=== PATIENT | male | born 1950 | race Hispanic/Latino ===

== ENCOUNTER 2017-06-24 10:56 | Outpatient (RCR) | payer MEDICARE | END 2017-07-13 | LOC: PT 10:56 | PROVIDERS: ATTEND Specialist | DX: M17.0 Bilateral primary osteoarthritis of knee (principal); M25.562 Pain in left knee; M25.561 Pain in right knee; M25.662 Stiffness of left knee, not elsewhere classified; M25.661 Stiffness of right knee, not elsewhere classified; M62.81 Muscle weakness (generalized); R26.2 Difficulty in walking, not elsewhere classified | CPT/HCPCS: 97110; 97162; G8978; G8979 ==

== ENCOUNTER 2018-03-10 16:17 | Emergency (ER) | payer MEDICARE ==
[~2018-03-10] VITALS: Ht 172.7 cm; Wt 81.6 kg
[2018-03-10] MEDS ORDERED: DEXAMETHASONE SOD PHOS 10 MG/1 ML VIAL INJ ONE (17:50)
[2018-03-10] MEDS ORDERED: KETOROLAC TROMETHAMINE 60 MG/2 ML VIAL IM ONE (17:55)
== END 2018-03-10 19:35 | disposition home or self-care (01) ==
LOC: ER 16:17
DX: M25.511 Pain in right shoulder (principal)
CPT/HCPCS: 29240; 99283; J1100; J1885

== ENCOUNTER 2018-03-14 10:32 | Emergency (ER) | payer MEDICARE ==
[~2018-03-14] VITALS: Ht 172.7 cm; Wt 81.6 kg
[2018-03-14 12:15] LABS: BILIRUBIN,URINE NEGATIVE (NEGATIVE); CLARITY,URINE CLEAR (CLEAR); COLOR,URINE YELLOW (YELLOW); KETONES,URINE NEGATIVE (NEGATIVE); LEUKOCYTE ESTERASE ,URINE NEGATIVE (NEGATIVE); NITRITE,URINE NEGATIVE (NEGATIVE); PROTEIN,URINE DIPSTICK NEGATIVE (NEGATIVE); URINE UROBILINOGEN 0.2 mg/dL (0.2 - 1)
[2018-03-14 12:16] LABS: EPITHELIAL CELLS,URINE RARE /LPF
[2018-03-14 12:51] LABS: BASOPHILS % 0.5 % (0.0-1.0); EOSINOPHILS # (AUTO) 0.1 (0.0-0.4); EOSINOPHILS % 0.9 % (0.0-6.0); HEMATOCRIT 41.9 % (38.2-49.6); HEMOGLOBIN 14.1 g/dL (14.0-18.0); LYMPHOCYTES # (AUTO) 1.4 (1.0-3.2); LYMPHOCYTES % 17.7 % (18.0-39.1); MEAN CORPUSCULAR HEMOGLOBIN 31.3 pg (28-32); MEAN CORPUSCULAR HGB CONC 33.7 g/dL (31-35); MEAN CORPUSCULAR VOLUME 93.1 fL (81-99); MONOCYTES # (AUTO) 0.7 (0.2-0.8); MONOCYTES % 8.8 % (4.4-11.3); NEUTROPHILS # (AUTO) 5.6 (2.1-6.9); NEUTROPHILS % 71.7 % (38.7-80.0); PLATELET COUNT 348 x10e3/uL (140-360); RED CELL DISTRIBUTION WIDTH 13.3 % (11.7-14.4)
[2018-03-14 13:29] LABS: ALANINE AMINOTRANSFERASE 17 IU/L (0-55); ALBUMIN 3.9 g/dL (3.5-5.0); ALBUMIN/GLOBULIN RATIO 1.1 (0.8-2.0); ALKALINE PHOSPHATASE 95 IU/L (40-150); ANION GAP 13.5 mmol/L (8-16); BLOOD UREA NITROGEN 15 mg/dL (7-26); BUN/CREATININE RATIO 19 (6-25); CALCIUM 9.8 mg/dL (8.4-10.2); CARBON DIOXIDE 27 mmol/L (22-29); CHLORIDE 100 mmol/L (98-107); EST GLOMERULAR FILTRATION RATE > 60 ML/MIN (60-); GLUCOSE 98 mg/dL (74-118); MAGNESIUM 2.1 MG/DL (1.3-2.1); POTASSIUM 3.5 mmol/L (3.5-5.1); SODIUM 137 mmol/L (136-145)
[2018-03-14] MEDS ORDERED: FLOMAX0.4 MG PO (14:12)
[2018-03-14 14:31] LABS: EOSINOPHILS % (MANUAL) 2 % (0-7); LYMPHOCYTES % (MANUAL) 19 % (19-48); MONOCYTES % (MANUAL) 9 % (3.4-9.0); NEUTROPHILS % (MANUAL) 70 % (40-74); PLATELET ESTIMATE ADEQUATE; PLATELET MORPHOLOGY COMMENT NORMAL; RBC MORPHOLOGY COMMENT NORMAL
== END 2018-03-14 15:00 | disposition home or self-care (01) ==
LOC: ER 10:32
DX: R30.0 Dysuria (principal); N40.0 Benign prostatic hyperplasia without lower urinary tract symptoms
CPT/HCPCS: 36415; 80053; 81001; 83735; 85025; 99284

== ENCOUNTER → 2021-04-08 | Outpatient (CLI) | payer OTHER ==
[~2021-04-08] MED LIST: FLOMAX0.4 MG PO
== END ==
LOC: RAD 13:15
PROVIDERS: ATTEND Internal Medicine
DX: M19.011 Primary osteoarthritis, right shoulder (principal)

== ENCOUNTER → 2021-04-15 | Outpatient (CLI) | payer OTHER | LOC: DX 08:59 | PROVIDERS: ATTEND Internal Medicine | DX: M85.88 Other specified disorders of bone density and structure, other site (principal) | CPT/HCPCS: 77080 ==

== ENCOUNTER 2021-08-12 12:41 | Emergency (ER) | payer MEDICARE, OTHER ==
[~2021-08-12] VITALS: Ht 172.7 cm; Wt 81.6 kg
[2021-08-12] MEDS ORDERED: IBUPROFEN 400 MG TAB PO ONE (13:00)
[2021-08-12] MEDS ORDERED: METHYLPREDNISOLONE SOD SUCC 125 MG/2ML VIAL IV ONE (13:15)
[2021-08-12 13:25] LABS: BASOPHILS % 0.2 % (0.0-1.0); EOSINOPHILS % 0.2 % (0.0-6.0); HEMATOCRIT 39.5 % (38.2-49.6); HEMOGLOBIN 13.5 g/dL (14.0-18.0); LYMPHOCYTES # (AUTO) 1.2 (1.0-3.2); LYMPHOCYTES % 13.6 % (18.0-39.1); MEAN CORPUSCULAR HEMOGLOBIN 33.3 pg (28-32); MEAN CORPUSCULAR HGB CONC 34.2 g/dL (31-35); MEAN CORPUSCULAR VOLUME 97.5 fL (81-99); MONOCYTES # (AUTO) 0.6 (0.2-0.8); MONOCYTES % 6.5 % (4.4-11.3); NEUTROPHILS # (AUTO) 6.7 (2.1-6.9); NEUTROPHILS % 78.8 % (38.7-80.0); PLATELET COUNT 297 x10e3/uL (140-360); RED BLOOD COUNT 4.05 x10e6/uL (4.3-5.7); RED CELL DISTRIBUTION WIDTH 13.5 % (11.7-14.4)
[2021-08-12 13:46] LABS: INR 0.82; PROTHROMBIN TIME 12.1 seconds (11.9-14.5)
[2021-08-12 13:47] LABS: PARTIAL THROMBOPLASTIN TIME 25.2 seconds (23.8-35.5)
[2021-08-12 13:48] LABS: ALBUMIN 3.9 g/dL (3.5-5.0); ALBUMIN/GLOBULIN RATIO 1.2 (0.8-2.0); ANION GAP 12.4 mmol/L (8-16); CALCIUM 9.4 mg/dL (8.4-10.2); CREATININE, SERUM 0.83 mg/dL (0.72-1.25); POTASSIUM 3.4 mmol/L (3.5-5.1)
[2021-08-12 14:31] LABS: CREATINE KINASE MB 6.2 ng/mL (0-5.0)
== END 2021-08-12 15:53 | disposition home or self-care (01) ==
LOC: ER 12:49
DX: J30.2 Other seasonal allergic rhinitis (principal); R06.02 Shortness of breath; I10 Essential (primary) hypertension; N40.0 Benign prostatic hyperplasia without lower urinary tract symptoms; Z20.822 Contact with and (suspected) exposure to COVID-19; Z79.899 Other long term (current) drug therapy
CPT/HCPCS: 36415; 70360; 71046; 80053; 82550; 82553; 83880; 84484; 85025; 85610; 85730; 93005; 99284; J2930; U0002

== ENCOUNTER → 2021-12-29 | Day surgery (SDC) | payer MEDICARE, OTHER ==
[2021-12-25 13:48] LABS: BASOPHILS % 0.4 % (0.0-1.0); EOSINOPHILS % 0.3 % (0.0-6.0); HEMATOCRIT 39.3 % (38.2-49.6); LYMPHOCYTES % 10.1 % (18.0-39.1); MEAN CORPUSCULAR HEMOGLOBIN 33.2 pg (28-32); MEAN CORPUSCULAR HGB CONC 33.1 g/dL (31-35); MEAN CORPUSCULAR VOLUME 100.5 fL (81-99); MONOCYTES # (AUTO) 0.5 (0.2-0.8); MONOCYTES % 5.2 % (4.4-11.3); NEUTROPHILS # (AUTO) 8.2 (2.1-6.9); NEUTROPHILS % 83.2 % (38.7-80.0); PLATELET COUNT 301 x10e3/uL (140-360); RED BLOOD COUNT 3.91 x10e6/uL (4.3-5.7); RED CELL DISTRIBUTION WIDTH 13.3 % (11.7-14.4)
[~2021-12-29] MED LIST changes: +BALANCED SALT SOLN (OPTH) 15 ML BTL IO ONE; +FENTANYL CITRATE/PF 100MCG/2 ML INJ ONE; +LIDOCAINE 2% /EPINEPHRINE 20 ML SDV INJ ONE; +LIDOCAINE HCL 2% LOCAL INJ 5 ML SDV VIAL INJ ONE; +LIPITOR10 MG PO; +LOSARTAN POTAS100 MG PO; +MELATONIN3 MG PO; +METOPROLOL SUCC25 MG PO; +MIDAZOLAM HCL 2 MG/2 ML VIAL ONE; +MULTI-VITAMIN1 EACH PO; +NEOMYCIN/POLYMYXIN/DEX (OPTH) 3.5 GM TUBE ONE; +OMEGA 3 PO; +POVIDONE IODINE 0.05% 0.05 % ML PO ONE; +PROPOFOL IV EMULSION 10 MG/ML 20 ML VIAL ONE; +TRIAMTERENE-HC1 EAC1 PO; +VIT B12 PO; +VIT D PO
[2021-12-29 17:16] VITALS: BP 170/98
[2021-12-29] MEDS: HYDRALAZINE HCL 20 MG/ML VIAL ONE ×2 (17:20→17:36)
== END | disposition home or self-care (01) ==
LOC: OR 11:00
PROVIDERS: ATTEND Ophthalmology
DX: H02.834 Dermatochalasis of left upper eyelid (principal); H02.831 Dermatochalasis of right upper eyelid; K21.9 Gastro-esophageal reflux disease without esophagitis; M19.90 Unspecified osteoarthritis, unspecified site; I10 Essential (primary) hypertension; G47.33 Obstructive sleep apnea (adult) (pediatric); M54.9 Dorsalgia, unspecified; M54.2 Cervicalgia; N40.0 Benign prostatic hyperplasia without lower urinary tract symptoms; E78.5 Hyperlipidemia, unspecified; Z01.812 Encounter for preprocedural laboratory examination; Z20.822 Contact with and (suspected) exposure to COVID-19; Z79.899 Other long term (current) drug therapy
CPT/HCPCS: 0223U; 36415; 82948; 85025; J0360; J2001; J2250; J3010

== ENCOUNTER → 2023-09-28 | Outpatient (REF) | payer MEDICARE ==
[~2023-09-28] MED LIST changes: -BALANCED SALT SOLN (OPTH) 15 ML BTL IO ONE; +CEPHALEXIN500 MG PO; -FENTANYL CITRATE/PF 100MCG/2 ML INJ ONE; -LIDOCAINE 2% /EPINEPHRINE 20 ML SDV INJ ONE; -LIDOCAINE HCL 2% LOCAL INJ 5 ML SDV VIAL INJ ONE; -MIDAZOLAM HCL 2 MG/2 ML VIAL ONE; -NEOMYCIN/POLYMYXIN/DEX (OPTH) 3.5 GM TUBE ONE; -POVIDONE IODINE 0.05% 0.05 % ML PO ONE; -PROPOFOL IV EMULSION 10 MG/ML 20 ML VIAL ONE
== END ==
LOC: RAD 13:54
PROVIDERS: ATTEND Physician Assistant Medical
DX: M79.642 Pain in left hand (principal)

== ENCOUNTER 2025-01-17 19:49 | Inpatient (IN) | payer MEDICARE ==
[~2025-01-17] VITALS: Ht 162.6 cm; Wt 88.5 kg
[~2025-01-17 19:49] MED LIST changes: +ASPIRIN81 MG PO; +ATORVASTATIN CA40 MG PO; +BUMETANIDE1 MG PO; +CIPRO500 MG PO; +CYCLOBENZAPRIN7.5 MG PO; +DOXYCYCLINE HY100 MG PO; +ENTRESTO 49 MG1 EACH PO; +FINASTERIDE5 MG PO; +HYDROCODON-ACE1 EAC9 PO; +IBUPROFEN600 MG PO; +JARDIANCE10 MG PO; +MELOXICAM7.5 MG PO; +METOPROLOL SUCC50 MG PO; +PERCOCET 5-3251 EACH PO; +SENNA S TABLET1 EACH PO; +TAMSULOSIN PO; +TRIAMTERENE-HCTZ1 EA PO; +TYLENOL325 MG PO; +ULTRAM 50MG50 MG PO; +prednisolone OS; +tylenol #3 PO
[2025-01-17 19:57] VITALS: TEMP 97.5
[2025-01-17 20:21] LABS: BASOPHILS % 0.2 % (0.0-1.0); EOSINOPHILS % 2.2 % (0.0-6.0); LYMPHOCYTES % 12.9 % (18.0-39.1); MONOCYTES % 11.4 % (4.4-11.3); NEUTROPHILS % 71.5 % (38.7-80.0); RED CELL DISTRIBUTION WIDTH 13.9 % (11.7-14.4)
[2025-01-17] MEDS ORDERED: SODIUM CHLORIDE 0.9% 1000ML 1,000 ML ONE (20:23)
[2025-01-17 20:41] LABS: EST GLOMERULAR FILTRATION RATE 76.0 ML/MIN (>=60)
[2025-01-17 20:43] LABS: CORONAVIRUS COVID-19 AG NEGATIVE (NEGATIVE)
[2025-01-17 22:57] VITALS: PULSE 71; RESP 18
[2025-01-17] MEDS: SODIUM CHLORIDE 0.9% 1000ML 1,000 ML IV STA (23:28)
[2025-01-17 23:43] VITALS: BP 104/64; PULSE 73; RESP 16; TEMP 97.5; O2SAT 100
[2025-01-18] VITALS (8 sets, daily range): BP systolic 104–131; BP diastolic 56–73; PULSE 65–83; RESP 16–20; TEMP 97.5–207.5; O2SAT 95–100
[2025-01-18] MEDS ORDERED: ENTRESTO 24 MG1 EACH PO (00:34)
[2025-01-18] MEDS ORDERED: TORSEMIDE20 MG PO (00:37)
[2025-01-18] MEDS ORDERED: METOLAZONE5 MG PO (00:39)
[2025-01-18] MEDS ORDERED: METOLAZONE2.5 MG PO (00:41)
[2025-01-18] MEDS: SODIUM CHLORIDE 0.9% 1000ML 1,000 ML IV SCH (00:52)
[2025-01-18 07:14] LABS: EST GLOMERULAR FILTRATION RATE 97.0 ML/MIN (>=60)
[2025-01-18 07:19] LABS: OSMOLALITY,SERUM 251 mOsm/kg (278-305)
[2025-01-18 07:25] LABS: BASOPHILS % 0.4 % (0.0-1.0); EOSINOPHILS % 2.9 % (0.0-6.0); LYMPHOCYTES % 15.9 % (18.0-39.1); MONOCYTES % 13.0 % (4.4-11.3); NEUTROPHILS % 65.5 % (38.7-80.0); RED CELL DISTRIBUTION WIDTH 14.1 % (11.7-14.4)
[2025-01-18] MEDS: POTASSIUM CHLORIDE 20 MEQ TAB CR PO ONE (08:46)
[2025-01-18] MEDS ORDERED: KCL 40MEQ/0.9% SOD CHL 1,000 ML IV SCH (12:00)
[2025-01-18 16:51] LABS: EST GLOMERULAR FILTRATION RATE 95.0 ML/MIN (>=60)
[2025-01-18] MEDS: POTASSIUM CHLORIDE 10MEQ EA PO ONE ×2 (17:59→18:01)
[2025-01-18] MEDS: KCL 40MEQ/0.9% SOD CHL 1,000 ML IV SCH (18:02)
[2025-01-18] MEDS: ATORVASTATIN 40 MG TAB PO SCH (21:11)
[2025-01-18] MEDS: MELATONIN 3 MG TAB PO SCH (21:11)
[2025-01-18] MEDS: SODIUM CHLORIDE 1 GM TAB PO SCH (21:11)
[2025-01-19] VITALS (8 sets, daily range): BP systolic 77–148; BP diastolic 43–93; PULSE 70–86; RESP 18–19; TEMP 97.4–98.5; O2SAT 94–100
[2025-01-19 05:45] LABS: BASOPHILS % 0.3 % (0.0-1.0); EOSINOPHILS % 2.7 % (0.0-6.0); LYMPHOCYTES % 17.8 % (18.0-39.1); MONOCYTES % 12.7 % (4.4-11.3); NEUTROPHILS % 64.6 % (38.7-80.0); RED CELL DISTRIBUTION WIDTH 14.0 % (11.7-14.4)
[2025-01-19 06:05] LABS: EST GLOMERULAR FILTRATION RATE 101.0 ML/MIN (>=60)
[2025-01-19] MEDS: METOPROLOL SUCCINATE 25 MG TAB XL PO SCH (09:00)
[2025-01-19] MEDS: LOSARTAN POTASSIUM 100 MG TAB PO SCH (09:00)
[2025-01-19] MEDS: TAMSULOSIN HCL 0.4 MG CAP PO SCH (09:08)
[2025-01-19] MEDS: EMPAGLIFLOZIN 10 MG TABLET PO SCH (09:08)
[2025-01-19] MEDS: FINASTERIDE 5 MG TAB PO SCH (09:09)
[2025-01-19] MEDS: POTASSIUM CHLORIDE 10MEQ EA PO ONE ×2 (12:53→14:52)
[2025-01-19] MEDS: FUROSEMIDE INJ 10 MG/ML 4 ML VIAL IV ONE (14:51)
[2025-01-19] MEDS: ENOXAPARIN SOD INJ 40 MG/0.4 ML SYR SC SCH (16:36)
[2025-01-20] VITALS (8 sets, daily range): BP systolic 97–115; BP diastolic 58–69; PULSE 75–87; RESP 18–20; TEMP 97.5–99.2; O2SAT 95–100
[2025-01-20 08:21] LABS: BASOPHILS % 0.2 % (0.0-1.0); EOSINOPHILS % 2.1 % (0.0-6.0); LYMPHOCYTES % 13.1 % (18.0-39.1); MONOCYTES % 11.2 % (4.4-11.3); NEUTROPHILS % 71.9 % (38.7-80.0); RED CELL DISTRIBUTION WIDTH 14.3 % (11.7-14.4)
[2025-01-20] MEDS: HYDROCODONE/APAP 10MG-325MG TAB PO PRN (08:44)
[2025-01-20 08:46] LABS: EST GLOMERULAR FILTRATION RATE 100.0 ML/MIN (>=60)
[2025-01-20 08:47] LABS: PHOSPHORUS 3.0 MG/DL (2.3-4.7)
[2025-01-20] MEDS: FUROSEMIDE INJ 10 MG/ML 4 ML VIAL IV SCH (22:30)
[2025-01-21 06:07] LABS: BASOPHILS % 0.1 % (0.0-1.0); EOSINOPHILS % 3.1 % (0.0-6.0); LYMPHOCYTES % 11.8 % (18.0-39.1); MONOCYTES % 13.0 % (4.4-11.3); NEUTROPHILS % 71.0 % (38.7-80.0); RED CELL DISTRIBUTION WIDTH 14.3 % (11.7-14.4)
[2025-01-21 06:33] LABS: EST GLOMERULAR FILTRATION RATE 99.0 ML/MIN (>=60)
[2025-01-21 08:00] VITALS: BP 113/61; PULSE 73; RESP 19; TEMP 98.7; O2SAT 96
[2025-01-21] MEDS: POTASSIUM CHLORIDE 20 MEQ TAB CR PO ONE (09:22)
[2025-01-21 12:00] VITALS: BP 103/58; PULSE 97; RESP 21; TEMP 99.2; O2SAT 99
[2025-01-21 16:00] VITALS: BP 110/59; PULSE 89; RESP 18; TEMP 99; O2SAT 98
[2025-01-21] MEDS: FUROSEMIDE 40 MG TAB PO SCH (16:40)
[2025-01-21 20:00] VITALS: BP 90/59; PULSE 89; RESP 18; TEMP 98.5; O2SAT 98
[2025-01-22 06:34] LABS: EST GLOMERULAR FILTRATION RATE 100.0 ML/MIN (>=60)
[2025-01-22 07:52] VITALS: BP 108/64; PULSE 70; RESP 17; TEMP 97.9; O2SAT 93
[2025-01-22] MEDS: POTASSIUM CHLORIDE 20 MEQ TAB CR PO SCH (09:42)
[2025-01-22] MEDS ORDERED: GADOBENATE DIMEGLUMINE 1 ML IV ONE (10:51)
[2025-01-22 11:44] VITALS: BP 108/60; PULSE 80; RESP 19; TEMP 97.8; O2SAT 95
[2025-01-22 16:00] VITALS: BP 92/49; PULSE 79; RESP 17; TEMP 98.9; O2SAT 98
[2025-01-22 20:00] VITALS: BP 124/78; PULSE 85; RESP 18; TEMP 98.1; O2SAT 97
[2025-01-22 23:53] VITALS: BP 101/61; PULSE 82; RESP 17; TEMP 98.2; O2SAT 94
[2025-01-23 04:00] VITALS: BP 112/64; PULSE 82; RESP 18; TEMP 98.4; O2SAT 97
[2025-01-23 05:57] LABS: BASOPHILS % 0.4 % (0.0-1.0); EOSINOPHILS % 4.6 % (0.0-6.0); LYMPHOCYTES % 11.6 % (18.0-39.1); MONOCYTES % 9.9 % (4.4-11.3); NEUTROPHILS % 72.8 % (38.7-80.0); RED CELL DISTRIBUTION WIDTH 14.3 % (11.7-14.4)
[2025-01-23 06:38] LABS: EST GLOMERULAR FILTRATION RATE 103.0 ML/MIN (>=60)
[2025-01-23 07:02] LABS: PHOSPHORUS 3.6 MG/DL (2.3-4.7)
[2025-01-23] MEDS ORDERED: MAGNESIUM SULFATE 2GM/50ML IV ONE (08:00)
[2025-01-23 09:22] VITALS: BP 166/96; PULSE 75; RESP 17; TEMP 98; O2SAT 98
[2025-01-23] MEDS: MAGNESIUM OXIDE 400 MG TAB PO SCH (10:13)
[2025-01-23] MEDS: MAGNESIUM SULFATE 2GM/50ML 50 ML IV ONE (10:14)
[2025-01-23] MEDS: SODIUM CHLORIDE 0.9% 250ML 250 ML ONE (10:15)
[2025-01-23 10:33] VITALS: BP 166/96; PULSE 75; RESP 17; TEMP 98; O2SAT 98
[2025-01-23] MEDS ORDERED: DOCUSATE SODIUM 100 MG CAP PO PRN (17:45)
[2025-01-23 18:04] VITALS: BP 162/92; PULSE 107; RESP 18; TEMP 98.6; O2SAT 100
[2025-01-23 19:53] VITALS: BP 129/76; PULSE 92; RESP 18; TEMP 100.5; O2SAT 97
[2025-01-23 21:00] VITALS: BP 129/76; PULSE 92; RESP 18; TEMP 100.5; O2SAT 97
[2025-01-24] VITALS (8 sets, daily range): BP systolic 100–128; BP diastolic 58–70; PULSE 78–90; RESP 17–20; TEMP 98.2–99.9; O2SAT 97–99
[2025-01-24 10:59] LABS: EST GLOMERULAR FILTRATION RATE 96.0 ML/MIN (>=60)
[2025-01-24] MEDS ORDERED: HYDRALAZINE HCL 20 MG/ML VIAL IV PRN (19:30)
[2025-01-24] MEDS ORDERED: HYDROCODONE/APAP 10MG-325MG TAB PO PRN (19:30)
[2025-01-24] MEDS ORDERED: MAGNESIUM HYDROXIDE 30 ML UDC PO PRN (19:30)
[2025-01-24] MEDS ORDERED: ACETAMINOPHEN 325 MG TAB PO PRN (19:30)
[2025-01-24] MEDS ORDERED: ONDANSETRON HCL INJ 2MG/ML 2ML 2 MG/ML VIAL IV PRN (19:30)
[2025-01-25] VITALS (7 sets, daily range): BP systolic 101–117; BP diastolic 56–77; PULSE 78–92; RESP 18–20; TEMP 98.1–100.7; O2SAT 96–98
[2025-01-25 06:27] LABS: BASOPHILS % 0.3 % (0.0-1.0); EOSINOPHILS % 7.4 % (0.0-6.0); LYMPHOCYTES % 15.1 % (18.0-39.1); MONOCYTES % 14.6 % (4.4-11.3); NEUTROPHILS % 59.9 % (38.7-80.0); RED CELL DISTRIBUTION WIDTH 14.3 % (11.7-14.4)
[2025-01-25 06:45] LABS: EST GLOMERULAR FILTRATION RATE 97.0 ML/MIN (>=60); PHOSPHORUS 3.8 MG/DL (2.3-4.7)
[2025-01-25] MEDS: SENNA-S TABLET PO SCH (09:31)
[2025-01-25] MEDS: ENOXAPARIN SOD INJ 40 MG/0.4 ML SYR SC SCH (16:31)
[2025-01-25] MEDS: POTASSIUM CHLORIDE 20 MEQ TAB CR PO ONE (17:51)
[2025-01-26] VITALS: BP 120/68; PULSE 86; RESP 20; TEMP 100.1; O2SAT 97
[2025-01-26 04:00] VITALS: BP 109/64; PULSE 79; RESP 18; TEMP 98; O2SAT 95
[2025-01-26 07:06] LABS: EST GLOMERULAR FILTRATION RATE 100.0 ML/MIN (>=60)
[2025-01-26 09:00] VITALS: BP 109/64; PULSE 79; RESP 18; TEMP 98; O2SAT 95
[2025-01-26 09:12] VITALS: BP 122/64; PULSE 77; RESP 20; TEMP 98.7; O2SAT 96
[2025-01-26 12:05] VITALS: BP 114/79; PULSE 82; RESP 20; TEMP 98.9; O2SAT 95
[2025-01-26 16:38] VITALS: BP 142/66; PULSE 84; RESP 18; TEMP 98.9; O2SAT 96
== END 2025-01-26 18:22 | DRG 643 ==
LOC: ER 19:57 → MERGE 21:28 → ERHOLD 21:28 → MED/SURG3 23:32
PROVIDERS: ADMIT Internal Medicine; ATTEND Internal Medicine
DX: E22.2 Syndrome of inappropriate secretion of antidiuretic hormone (principal); G93.41 Metabolic encephalopathy; I50.33 Acute on chronic diastolic (congestive) heart failure; L03.116 Cellulitis of left lower limb; L03.115 Cellulitis of right lower limb; I11.0 Hypertensive heart disease with heart failure; M46.46 Discitis, unspecified, lumbar region; R62.7 Adult failure to thrive; E87.6 Hypokalemia; E83.42 Hypomagnesemia; E87.8 Other disorders of electrolyte and fluid balance, not elsewhere classified; R29.810 Facial weakness; R53.1 Weakness; I89.0 Lymphedema, not elsewhere classified; R25.1 Tremor, unspecified; E11.9 Type 2 diabetes mellitus without complications; Z79.84 Long term (current) use of oral hypoglycemic drugs; Z79.4 Long term (current) use of insulin; E78.5 Hyperlipidemia, unspecified; R26.9 Unspecified abnormalities of gait and mobility; I45.10 Unspecified right bundle-branch block; R53.81 Other malaise; T50.2X5A Adverse effect of carbonic-anhydrase inhibitors, benzothiadiazides and other diuretics, initial encounter; Y92.230 Patient room in hospital as the place of occurrence of the external cause; E88.2 Lipomatosis, not elsewhere classified; M48.08 Spinal stenosis, sacral and sacrococcygeal region; M48.061 Spinal stenosis, lumbar region without neurogenic claudication; M25.562 Pain in left knee; M25.512 Pain in left shoulder; G89.29 Other chronic pain; R32 Unspecified urinary incontinence; E66.9 Obesity, unspecified; Z71.3 Dietary counseling and surveillance; Z68.33 Body mass index [BMI] 33.0-33.9, adult; D64.9 Anemia, unspecified; N40.0 Benign prostatic hyperplasia without lower urinary tract symptoms; M19.91 Primary osteoarthritis, unspecified site; Z11.52 Encounter for screening for COVID-19; Z71.81 Spiritual or religious counseling; Z79.899 Other long term (current) drug therapy
CPT/HCPCS: 36415; 70450; 70551; 71045; 71250; 72157; 72158; 80048; 80053; 82550; 82607; 82746; 82947; 83690; 83735; 83880; 83935; 84100; 84295; 84300; 84443; 84484; 84520; 85025; 86140; 93005; 93306; 99284; J0690; J1650; J1938; J2543; J3475; J7030; J7050